=== PATIENT | female | born 1985 | race Hispanic/Latino ===

== ENCOUNTER 2018-04-11 08:13 | Emergency (ER) | payer OTHER ==
[~2018-04-11] VITALS: Ht 167.6 cm; Wt 54.9 kg
[~2018-04-11 08:13] MED LIST: ANTIVERT 25 MG25 MG PO; FLOMAX(MONOGRA0.4 MG PO; IBUPROFEN800 M1 PO; MOTRIN 600 MG600 MG PO; MOTRIN 800MG T800 MG PO; NAPROXEN500 MG PO; ORTHO TRI-CYCLEN LO; PERCOCET 325 MG1 TA2 PO; PERCOCET 5-3251 EACH PO; PRENATAL1 TA2 PO; ZOFRAN ODT4 MG PO
[2018-04-11 08:59] LABS: ABSOLUTE BASOPHIL COUNT 0 /CUMM (0.0-0.2); ABSOLUTE EOSINOPHIL COUNT 0.3 /CUMM (0.0-0.7); ABSOLUTE GRANULOCYTE CT 2.4 /CUMM (1.4-6.5); ABSOLUTE LYMPH COUNT 1.7 /CUMM (1.2-3.4); ABSOLUTE MONOCYTE COUNT 0.4 /CUMM (0.10-0.60); EOSINOPHIL % 5.3 % (0-5); HEMATOCRIT 37.6 % (37-47); MEAN CORPUSCULAR HGB 30.2 PG (27.0-31.0); MEAN CORPUSCULAR HGB CONC 33.8 G/DL (33.0-37.0); MEAN CORPUSCULAR VOLUME 89.4 FL (81.0-99.0); MEAN PLATELET VOLUME 7.9 FL (7.4-10.4); PLATELET COUNT 362 /CUMM (130-400); RBC DISTRIBUTION WIDTH 12.7 % (11.5-14.5); RED BLOOD CELL CT 4.21 /CUMM (4.20-5.40); WHITE BLOOD CELL COUNT 4.7 /CUMM (4.8-10.8)
--- NOTE | 2018-04-11 11:49 | ED GI/GU/ABDOMINAL COMPLAINT ---
History of Present Illness General Chief Complaint: Abdominal Pain/Flank Pain Stated Complaint: ABD PAIN Source: patient Exam Limitations: no limitations Vital Signs & Intake/Output Vital Signs & Intake/Output Vital Signs Date Time Temp Pulse Resp B/P B/P Pulse O2 O2 Flow FiO2 Mean Ox Delivery Rate 04/11 1039 98.4 73 18 111/54 98 Room Air 04/11 0841 97.7 75 16 117/65 95 Room Air Allergies Coded Allergies: No Known Allergies (01/05/17) Reconcile Medications Ibuprofen 800 MG TABLET 1 TAB PO TID PRN PAIN Oxycodone HCl/Acetaminophen (Percocet 5-325 MG Tablet) 5 MG-325 MG TABLET 1-2 TAB PO Q6P PRN PAIN Triage Note: 33 Y/O FEMALE C/O "SORENESS" TO ENTIRE ABDOMEN, ONSET YESTERDAY AND INTERMITTENT SINCE. PT UNABLET TO LOCATE SPECIFIC COMPLAINT OF PAIN STATING "ITS THE WHOLE THING". DENIES URINARY SYMPTOMS. DENIES DIARRHEA. DENIES NAUSEA/VOMITING. AFEBRILE. LAST MENSES: HAS MIRENA Triage Nurses Notes Reviewed? yes ? n Is pt currently ? No HPI: 33 YO female who noted anterior abdominal pain after working out for the first time in a long time 3 days ago. Was concerned that there was something seriously wrong. Denies fever, N/V/D, hematuria, dysuria, back pain, constipation, previous abd surgeries, rash or other trauma. Rates pain 5/10. Past History Medical History Any Pertinent Medical History? 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 No Review of Systems Review of Systems Constitutional: Reports: see HPI. Physical Exam Physical Exam General Appearance: well developed/nourished, no apparent distress, alert Head: atraumatic, normal appearance Eyes: Bilateral: normal appearance, PERRL, EOMI, normal inspection. Ears, Nose, Throat, Mouth: hearing grossly normal Neck: normal inspection, supple, full range of motion, normal alignment Respiratory: normal breath sounds, chest non-tender, no respiratory distress, quiet respiration Cardiovascular: regular rate/rhythm Gastrointestinal: normal bowel sounds, soft, Tender along her anterior abdominal musculature, particularly around rectus sheath without discoloration, McBurney or White point tenderness, and without Rovsing's, iliopsoas or obturator signs. Normal BS. Non distended. No hernia.NO rebound or guyarding. Back: normal inspection Extremities: normal range of motion Neurologic/Psych: no motor/sensory deficits, awake, alert, oriented x 3 Core Measures ACS in differential dx? No Sepsis Present: No Sepsis Focused Exam Completed? No Progress Differential Diagnosis: appendicitis, biliary colic, cholecystitis, diverticulitis, ectopic , gastritis, hepatitis, inflamm bowel dis, kidney stone, ovarian cyst, ovarian torsion, pancreatitis, PUD/GERD, Muscular pain (DOMS) Plan of Care: Orders Procedure Date/time Status URINE 04/11 818 Complete URINALYSIS 04/11 818 Complete LIPASE 04/11 818 Complete COMPREHENSIVE METABOLIC PANEL 04/11 818 Complete CBC WITHOUT DIFFERENTIAL 04/11 818 Complete Laboratory Tests 04/11/18 0850: Anion Gap 11, Estimated GFR > 60, BUN/Creatinine Ratio 24.3, Glucose 74, Calcium 9.3, Total Bilirubin 0.4, AST 26, ALT 22, Alkaline Phosphatase 54, Total Protein 7.4, Albumin 4.3, Globulin 3.1, Albumin/Globulin Ratio 1.4, Lipase 209, CBC w Diff NO MAN DIFF REQ, RBC 4.21, MCV 89.4, MCH 30.2, MCHC 33.8, RDW 12.7, MPV 7.9 , Gran % 50.0, Lymphocytes % 35.8, Monocytes % 7.9, Eosinophils % 5.3 H, Basophils % 1.0, Absolute Granulocytes 2.4, Absolute Lymphocytes 1.7, Absolute Monocytes 0.4, Absolute Eosinophils 0.3, Absolute Basophils 0 04/11/18 0841: Urine Color YEL, Urine Clarity HAZY H, Urine pH 6.0, Ur Specific [place] 1.025, Urine Protein NEG, Urine Ketones NEG, Urine Nitrite NEG, Urine Bilirubin NEG, Urine Urobilinogen 0.2, Ur Leukocyte Esterase NEG, Ur Microscopic SEDIMENT EXAMINED, Urine RBC 5-10 H, Urine WBC RARE, Ur Epithelial Cells MANY H, Urine Bacteria MOD H, Urine Hemoglobin LARGE H, Urine Glucose NEG, Urine Test NEGATIVE Initial ED EKG: not indicated Departure Departure Time of Disposition: 1147 Disposition: HOME OR SELF CARE Condition: Stable Clinical Impression Primary Impression: Generalized muscular abdominal pain Referrals: Amalia Elizabeth APRN (PCP/Family) Departure Forms: Customer Survey General Discharge Information RELEASE- WORK
[2018-04-11 11:57] VITALS: BP 106/53
== END 2018-04-11 12:01 ==
LOC: ERH 08:13
PROVIDERS: Physician Assistant Medical
DX: R10.84 Generalized abdominal pain (principal)
CPT/HCPCS: 81001; 81025